=== PATIENT | female | born 1990 | race Caucasian/White ===

== ENCOUNTER 2023-07-23 08:54 | Observation (INO) ==
--- NOTE | 2023-07-07 13:31 | Anesthesiology Consultation ---
Date of Service July 07, 2023 Assessment & Plan (1) Encounter for pre-operative examination: - Check test AM DOS - Infectious disease screening: Per assessment on 07/07/23: No known infectious disease contacts or current infectious disease symptoms. No noted recent Covid positive test result. - S/P Right knee arthroscopy/PMM/chondroplasty (09/25/22): LMA#5 igel at [facility] - Preop testing: No recent EKG. Will order EKG for DOS. Chart Review Chart Review: Acceptable Risk for Surgery (pending preop EKG DOS) and Patient NOT seen in Pre Admission Testing History Surgery Operation Date: 07/23/23 07:15 Proposed Procedures p Right Knee Arthroscopy, Posterior Root Repair Medial Meniscus, Anterior Cruciate Ligament Reconstruction with Allograft, Open Osteochondral Allograft Femoral Condyle - Jeffery Morris MD Height/Weight Height: 5 ft 8 in Weight: 120.202 kg Allergies Allergy/AdvReac Type Severity Reaction Status Date / Time No Known Allergies Allergy Verified 07/02/23 14:45 Medications Home Medications Medication Instructions Recorded Confirmed Last Taken medroxyprogesterone 10 mg tablet 10 mg PO UD 08/22/22 07/07/23 09/15/22 (Provera) metformin 500 mg tablet 500 mg PO BID PCOS 08/22/22 07/07/23 09/23/22 18:00 minocycline 100 mg tablet 100 mg PO QPM 09/16/22 07/07/23 09/16/22 18:00 phentermine 37.5 mg capsule 37.5 mg PO DAILY 07/07/23 07/07/23 Unknown spironolactone 25 mg tablet 25 mg PO QAM 07/07/23 07/07/23 Unknown Past Medical History Medical History History of COVID-19 01/2021: fever, loss taste and smell, cold symptoms > symptoms resolved w/altered taste and smell Obesity PCOS (polycystic ovarian syndrome) Taking Metformin Past Family History Family History Other No family history of adverse response to anesthesia Past Surgical History Surgical History History of arthroscopy of right knee (09/25/22) Right knee arthroscopy/PMM/chondroplasty: LMA#5 igel at [facility] Hx laparoscopic cholecystectomy Hx of tonsillectomy [place] teeth extracted Social History Smoking Status: Never smoker Do You Dip or Chew Tobacco: No Hx Alcohol Use: Yes alcohol intake frequency: a few times a week Hx Substance Use: No substance use type: does not use Lab Results Anesthesia Preop Results Results Anesthesia Widget: WBC 10.60 K/ul (4.8-10.8) 07/02/23 Hgb 14.8 g/dl (12.0-16.0) 07/02/23 Hct 46.0 % (37.0-47.0) 07/02/23 Plt 267 K/uL (130-400) 07/02/23 Na 141 mmol/L (136-145) 07/02/23 K 3.4 mmol/L (3.5-5.1) L 07/02/23 Cl 102 mmol/L (98-107) 07/02/23 CO2 33 mmol/L (21-32) H 07/02/23 BUN 15 mg/dl (6-23) 07/02/23 Creat 0.64 mg/dl (0.6-1.2) 07/02/23 Glucose Level 83 mg/dl (70-99(Fasting)) 07/02/23
[2023-07-23] MEDS ORDERED: ROPIVACAINE 0.5% 5 MG/ML 30 ML VIAL ONE (09:42)
[2023-07-23] MEDS ORDERED: ATROPINE SULFATE 0.1 MG/ML 10ML SYR IV PRN (10:04)
[2023-07-23] MEDS ORDERED: ONDANSETRON INJ 2 MG/ML 2 ML VIAL IV PRN ×2 (10:04→22:02)
[2023-07-23] MEDS ORDERED: ePHEDrine sulfate 50 MG/ML AMP IV PRN (10:04)
[2023-07-23] MEDS ORDERED: HYDROmorphone INJ 1 MG/ML SYRINGE IV PRN (10:04)
[2023-07-23 10:07] LABS: Pregnancy Test, Serum Negative (Negative)
[2023-07-23] MEDS ORDERED: MIDAZOLAM HCL 1 MG/ML 2ML VIAL ONE (10:09)
[2023-07-23] MEDS: ACETAMINOPHEN 500 MG TAB PO SCH ×2 (10:12→22:52)
--- NOTE | 2023-07-23 10:16 | History & Physical Bridge Note ---
Date of Service July 23, 2023 History & Physical Bridge Note I have examined the patient, reviewed the History & Physical and in the interval since the performance of the History & Physical I have noted the following changes of clinical significance: no changes noted
[2023-07-23] MEDS: LR 60ML/HR IV SCH (10:20)
[2023-07-23] MEDS: TRANEXAMIC ACID 1,000 MG **IV Pre-op IV SCH (10:36)
[2023-07-23] MEDS ORDERED: ROCURONIUM BROMIDE 10 MG/ML 5 ML VIAL IV ONE ×3 (10:51→13:27)
[2023-07-23] MEDS ORDERED: fentaNYL citrate PF 100 MCG/2 ML VIAL ONE ×2 (10:51→13:54)
[2023-07-23] MEDS ORDERED: ONDANSETRON INJ 2 MG/ML 2 ML VIAL ONE ×2 (10:51→19:12)
[2023-07-23] MEDS ORDERED: LIDOCAINE 2% 2 ML VIAL/AMP(20MG/ML) INFIL ONE (10:51)
[2023-07-23] MEDS ORDERED: PROPOFOL IV EMULSION 10 MG/ML 20 ML VIAL IV ONE ×6 (10:51→20:40)
[2023-07-23] MEDS ORDERED: DEXAMETHASONE SOD INJ 4 MG/ML VIAL ONE (10:51)
[2023-07-23] MEDS: ceFAZolin 3000MG 3,000 MG/72.5 ML BAG IV SCH (11:19)
[2023-07-23] MEDS: TRANEXAMIC ACID 100 MG/ML 10 ML VIAL IV ONE (12:15)
--- NOTE | 2023-07-23 14:23 | Electrocardiogram Report ---
Test Reason : Blood Pressure : / mmHG Vent. Rate : 066 BPM Atrial Rate : 066 BPM P-R Int : 176 ms QRS Dur : 068 ms QT Int : 390 ms P-R-T Axes : 039 -01 012 degrees QTc Int : 408 ms Sinus rhythm with marked sinus arrhythmia Otherwise normal ECG No previous ECGs available Confirmed by Brian Zhou ([id number]) on 07/23/2023 2:23:49 PM Referred By: Jeffery Morris Confirmed By:Andrea Zhou
[2023-07-23] MEDS ORDERED: ceFAZolin 330 MG/ML 1 GM VIAL ONE (15:01)
[2023-07-23] MEDS ORDERED: HYDROmorphone INJ 2 MG/ML SYR/VIAL ONE ×2 (16:27→19:34)
[2023-07-23] MEDS: TRANEXAMIC ACID 1,000 MG **IV Intra-op IV SCH (17:23)
[2023-07-23] MEDS: VANCOMYCIN HCL 1000MG/20ML VIAL ONE (18:40)
[2023-07-23] MEDS ORDERED: diphenhydrAMINE 50 MG/ML VIAL ONE (19:16)
[2023-07-23] MEDS ORDERED: NEOSTIGMINE METHYLSULFATE 1 MG/ML 10ML VIAL ONE (19:18)
[2023-07-23] MEDS ORDERED: GLYCOPYRROLATE 0.2 MG/ML VIAL ONE (19:18)
[2023-07-23] MEDS ORDERED: Nursing to Pharmacy Communication SCH (20:45)
[2023-07-23] MEDS: fentaNYL citrate PF 100 MCG/2 ML VIAL IV PRN (20:50)
--- NOTE | 2023-07-23 21:06 | Anesthesiology Progress Note ---
Date of Service July 23, 2023 Anesthesia Post Procedure Vital Signs Vital Signs: Temp Pulse Pulse Resp BP Pulse Ox O2 Del Method 07/23/23 20:55 82 14 135/84 100 Room Air 07/23/23 20:45 72 13 135/84 100 Oxymask 07/23/23 20:35 73 11 L 116/98 100 Oxymask 07/23/23 20:25 72 11 L 139/73 100 Oxymask 07/23/23 20:15 97.3 F L 72 11 L 134/85 100 Oxymask 07/23/23 09:38 98.4 F 81 20 126/92 100 Room Air O2 Flow Rate 07/23/23 20:55 07/23/23 20:45 6 07/23/23 20:35 6 07/23/23 20:25 6 07/23/23 20:15 6 07/23/23 09:38 Pain Intensity Right Knee: Pain Intensity: 7 Transfer of Care Handoff Completed per policy Notes Mental Status: alert / awake / arousable and participated in evaluation Patient Amnestic to Procedure: Yes Nausea / Vomiting: adequately controlled Pain: adequately controlled Airway Patency, RR, SpO2: stable & adequate BP & HR: stable & adequate Hydration State: stable & adequate Anesthetic Complications: no major complications apparent and Pt Satisfied with anesthetic care
--- NOTE | 2023-07-23 21:55 | Operative Report ---
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 Because of the BMI and habitus, at least 2 hours were added to what would be expected for routine case. The combined pathology led to at least 2 hours of preoperative planning time and increased surgical time to address the multiple variables for knee preservation. Surgeon Jeffery Morris MD Voice Writing Reporter Perla Lucero PA-C Estimated Blood Loss 100 Findings See Below EUA demonstrated grade 2B Jeffrey and anterior drawer, 0 station, grade 1 posterior drawer, grade 3 pivot shift. Arthroscopy revealed ACL deficiency, chronic tear of the posterior root of the medial meniscus with progression of the medial femoral condyle focal chondral defect. There was some adjacent far medial tibial plateau disease underneath the chronically torn medial meniscus. The lateral compartment unfortunately had new onset chondromalacia with a 8 x 28 mm full-thickness chondral defect involving the majority of the weightbearing portion lateral femoral condyle, which was not expected. The patella had fibrillated cartilage with grade 2 and 3 change. The trochlea had full- thickness chondral delamination. The patellofemoral changes were new since the original surgery and MRI. The posterior root of the medial meniscus was repaired after elevation with an Arthrex simple mattress suture lock. This reduced the meniscus well. The medial femoral condyle disease was treated with a large bioUni osteochondral allograft with good fit (X20). The medial tibial plateau disease was offloaded with an 8 degree high tibial osteotomy using Arthrex iBalance PEEK plate (medium, 8 degrees; 4.5 x 44 mm cortical HTO anchor, 6.5 x 20 mm cancellous anchor, 6.5 x 24 mm cancellous anchor, 4.5 x 40 mm cortical anchor) backfilled with 2 Osferion wedges 7 mm x 30 mm, and local autograft bone from the ACL tunnels and osteotomy. The lateral femoral condyle surprisingly required osteochondral allograft implantation as well, and was treated with a biouni OCA (S14). The chronic ACL deficiency was treated with an allograft quad link measuring 8.5 x 66 mm, fixed on the femur with an Arthrex tight rope button and on the tibia with an ABS tight rope button 17 mm. The internal brace to traversed from the tight rope and into a 4.75 bio composite lock on the tibia. Specimens None Complications none Disposition Accompanied Patient To Recovery: Yes Disposition: Recovery Room Indications 33-year-old female presented today to proceed with the proposed knee preservation surgery to include allograft ACL reconstruction, osteochondral allograft to the medial femoral condylar lesion, and to address the original lesion of the root tear of the medial meniscus. She had previously undergone surgery for the meniscal issue where the intraoperative exam found to be ACL deficient and unstable. At that surgery retreated a medial femoral condylar lesion with chondroplasty. The anterior lateral compartments were without pathology. I opted not to fix the posterior to the medial meniscus due to the inherent knee instability from chronic ACL deficiency and a high-grade pivot shift. She was treated for the past year with activity modification and seem to gain some relief with a chondroplasty. Ultimately she felt unstable and painful. I proposed knee preservation surgeries to address the medial femoral condyle defect, chronic posterior root medial meniscus tear and chronic ACL insufficiency. Reviewed the risk, benefits, and alternatives of surgery in detail, as outlined in several preoperative notes. Ultimately informed consent was obtained for surgery as she desired to proceed with an knee arthroscopy, high tibial osteotomy, osteochondral allograft to the medial femoral condyle, and posterior root medial meniscus repair. Description of Procedure On the day of surgery, the patient was greeted in the preoperative holding area. The informed consent was reviewed and confirmed by myself and the patient. The patient identified the surgical site and was marked by me. The patient was then turned over to anesthesia. Anesthesia performed a regional anesthetic block with excellent effect. Patient was then taken to the operating place upon the OR table and anesthesia was in duced. The airway was secured. She was placed supine on the table with a lateral post and a foot bump to hold knee flexion. Nonsterile tourniquet was placed high on the thigh. The limb was then prepped and draped in usual sterile fashion for knee surgery. Fluoroscopic imaging was available. The grafts were available and viable. Surgical timeout was called by the circulating nurse, and verified all present. Antibiotics have been infused, TXA had been infused, equipment was available and functional, and the grafts were ready. On the back table, the physician assistant director of financial aid prepped the allograft ACL under my direction. This shuttling sutures were used to place an Arthrex tight rope on the femoral side, and an ABS button on the tibial side. This was placed under 80 pounds of tension on the back table. A compression to reduce the graft size from 9 to 8.5 mm. It was soaked in normal saline and preserved on the back table under tension. The osteochondral allograft was taken from its preparation medium and soaked in normal warm saline. This was covered and preserved. Surgery was initiated with establishing a lateral viewing portal for the arthroscopy. Cursory diagnostic arthroscopy is carried out. Medial portal was established using a spinal needle for localization. Surprisingly, there was advancement of her chondral disease in the patellofemoral compartment and lateral compartment. After evaluating the lateral compartment, there was concern about proceeding with the ACL. I then evaluated the condylar graft and discovered that the may be enough tissue for an osteochondral allograft to both condyles. For that reason we continue the surgery. The medial compartment was visualized. She had a stable full-thickness chondral lesion that was involving the majority of the weightbearing surface of the medial femoral condyle. On the far medial margin of the medial tibial plateau there was adjacent full-thickness chondral loss due to meniscal extrusion and a chronic root tear. The meniscus was mobilized and did reduce well to the root. We directed our attention to the medial meniscus root repair. The tibial incision was made in line for the planned osteotomy. Dissection was carried down through the soft tissues with Bovie electrocautery for hemostasis. The patella tendon was identified. The capsule was preserved for knee arthroscopy. I exposed the anterior medial face of the tibia and the pes anserine tissues. The hamstring insertion was identified and preserved. The medial meniscus posterior root guide was then placed into the medial portal which been cannulated with an Arthrex silicone passport. The suture lock pin was then drilled to the posterior landmark without complication. The shuttling suture was placed up the cannulated pin and taken out the medial portal. The suture lock device was then loaded onto this Nitinol wire and pulled down and deployed into the proximal tibia with a firm reduction. This was tensioned and set on an y the subchondral bone. The sutures from the suture lock were taken on the lateral portal. I then used the repair Arthrex meniscal scorpion to pass repair stitches from the suture lock in the appropriate locations for simple mattress repair. These were shuttled using the suture lock mechanism. The meniscus reduced well and fixed in place at the prepared footprint. This completed the meniscal repair. The meniscus did reduce well and covered out the medial tibial plateau disease. We decided to continue with the next steps. Attention was then directed to the femoral origin of the ACL. Soft tissue dissection was carried out using motorized shaver and RF [place] wand. The ACL footprint had chronic changes from a remote rupture. The residual ACL tissue was scarred against the floor of the tibia and against the PCL. This was debrided in its entirety back to the tibial footprint. Tibial footprint was marked. The flip cutter was then introduced. The body habitus made to suggest the guide to accommodate. We then drilled from outside him with the flip cutter 3. The flip cutter was used to cut an 8.5 mm socket in the femoral footprint without complication. A shuttling stitch was placed here. This was a fiber snare. This was secured with a hemostat for later passage. The socket reamings were collected using an Arthrex graftnet for later grafting to the HTO site. The ACL tibial guide was then used to drill the tibial socket in similar fashion. We drilled a 8.5 mm socket with extended length to accommodate for osteotomy which was a plan to cross. I cut at least a 40 mm socket. No shuttling suture was passed here as we would have to do the osteotomy first. All the reamings were collected via his motorized shaver and the GraftNet. Attention was then directed to the osteochondral allograft portion of the surgery. The skin incision was extended up over the patella in standard fashion. Hemostasis was achieved. At this point the tourniquet was inflated. We used 250 mmHg with gravity exsanguination. Soft the dissection was carried down to the arthrotomy portion. I carried the arthrotomy up into the quad tendon on its medial border. The arthrotomy was then carried down to the tibial plateau to expose the medial border the patella tendon. We could see the femoral suture already passed. The joint was thoroughly irrigated to ensure no bone debris from the femoral drilling was remaining. Soft tissues were released to allow lateral subluxation of patella using Z retractors. This revealed the medial femoral condyle easily. The lesion was majority the weightbearing surface and the knee had to be hyperflexed to about 100 degrees to visualize the posterior border. The template guides for the OCA system were used to size the lesion. We used ma ximal size of an X20. This template was then used on the osteochondral allograft. The allograft was captured on the graft prep station. The template was used to begin the harvest. The area was marked so that the cutting guide could be tamped down. We then used the cutting guide to develop the bio uni shape. It was cut down to the third line depth. The standard sagittal saw cutting guide was used to harvest the graft using the proprietary system. The plunger device was used to free the graft and the cutting block. The graft was in good shape. It fit well into the template guide. The graft plug was then thoroughly irrigated with 3 L of Pulsavac lavage. 20 cc of ACP was harvested by anesthesia. This was used to hydrate the graft. It was stored in a sterile container on the back table while prepared the recipient lesion. The recipient area was then prepped by placing the guidepins to the template guide. The reamer drill was used to debride the cartilage. The block cut was used to remove the in between bone. We cut this flush using the variable reamer. The bony surface was scraped using an osteotome to clear all debris through irrigation was used with Andersen tip suction. The floor of the bed was microfractured using a microfracture awl. Allosync pure demineralized bone matrix was then hydrated with some of the ACP and placed in the bed recipient bed. Suture tape was placed across the bed and the prepared allograft plug was placed down into the bed. He seemed to be somewhat prominent all around. The fiber tape was used to remove the plug. The plug was placed back in the ACP silk. I then used the +1 reamers to flatten the bed another millimeter. This resulted in a better fit. We prepped the bed in the same way with microfracture and Allosync pure. There was good fit, so the suture tapes were cut and removed from underneath the graft gentle tamping was used to secure it. The retractors were then used to further subluxate the patella to expose the lateral femoral condyle. There was a full-thickness significant lesion that may alter the weightbearing plan and osteotomy benefit. For that reason I opted to use remaining cartilage graft to perform an osteochondral allograft this lateral femoral condyle as well. This added additional time to the procedure. The lateral femoral condyle procedure was carried out in a similar fashion as the medial. On this section, used the S14 template. This match fairly well to the anterior portion of the contralateral lateral femoral condyle. This was harvested with standard technique and preserved and then soaked ACP after 3 L pulse lavage. The recipient site was repaired in a similar manner but I offset the flush reamer and a +1 mm reamer because of the fit and the template guide on the back table. This resulted in a good fit. The plug was soaked in ACP and then transferred into the lesion bed with suture tape underneath it. We checked the fit and it was somewhat proud. The plug was removed in a similar fashion. I scraped the medial border of the recipient bed for about a millimeter. The dilator was used once again to open it up. The microfracture awl prepared the bed and Allosync. Was used along the margins. The donor plugs were all beveled at their bottom edge for easier fit. The plug was then placed over the suture tape. There was excellent fit and full range of motion without crepitus. The suture tapes were then cut and pulled. Final tamping was performed gently to seat the graft finally. This completed to osteochondral allograft, 1 to each femoral condyle. At this point we broke scrub to don lead for the osteotomy portion. With fresh gown and gloves, proceeded to direct our attention to the osteotomy portion. I exposed the anterior medial face of the tibia with slight extension of the incision. Dissection was carried out posterior medially. An L-shaped sartorial fascial elevation was performed to allow access to the posterior margin of the tibia. The curved Manning was then directed along the posterior tibia with fluoroscopic guidance to make way for the neurovascular shield. Fluoroscopy confirmed appropriate position. We then worked on placing our cutting guide. He was placed against the face of the tibia. We had significant difficulty due to body habitus. Her tibial soft tissue envelope maxed out the available space and the guide. This required additional time and dissection to get appropriate placement. Finally were able to align the tibial slope and wings of the guides to allow appropriate placement with the pedicles firmly placed against the tibia in appropriate position. The finger projection placed underneath the patellar tendon just proximal to its insertion. Fluoroscopy was used in multiple planes to confirm safe position. The guide was then pinned in place with standard technique. We obtained an AP view of fluoroscopy for the lateral hinge pin. We had obtained a perfect hopi and there seem to be acceptable position for the hands. This was drilled and the hinge pin was placed. We then drilled the 2 cores for our plate screw placement. The centering pin plug was used during this process. The pin guide was then removed for the cutting guide. The neurovascular guide was then placed per the arabic translator's directions along the guide. The position of the neurovascular shield appeared to be appropriate based on fluoroscopy as it was advanced towards the fibular head. The cutting block was then used with a sagittal saw to begin our tibial osteotomy with caution for nearby neurovascular structures. The osteotomy was finished using the Arthrex osteotome. We used multiple plain fluoroscopy to ensure complete osteotomy. We did have to revise the medial cortex to complete it with the osteotome. We then gained opening with valgus stress. The cutting guide was then removed. The HTO opening Cruz was then placed. The cruz was then used over the next 5 to 7 minutes to gradually open the osteotomy. We used a plumbline from the centimeter femoral head to the center of her talus. I aim for the lateral tibial spine with an 8 degree correction requiring to gain that. This was slightly larger than the preoperative plan from her standing x-rays. I opened about 10 degrees to allow placement of graft. OsFerion wedges were cut to fit and then tamped in place along the anterior and posterior medial cortices. Bone graft was tamped into place through the curz while leaving room for the plate. The cruz was removed and the plate was placed. We selected 8 degree medium plate based on our sizing guide with full fluoroscopic imaging to start the case. The plate sat flush. It did tend to rotate somewhat and a tamp had to be used to place it back in place. We then direct attention to the Arthrex HTO plate anchors. These were drilled according to arabic translator's directions. The inferior bicortical anchors were tapped appropriately. The inferior medial screw position screw head did seem to break. The screw head was removed. The plate did seem to gain fixation with it. It was left in place. The remaining 3 anchors were drilled and placed with good fixation. The plate seem to reduce with slight medial rotation and a 2 to 3 mm overhang. I felt this was acceptable because the correction was adequate on her fluoroscopy with the plumbline and weightbearing axis. I also felt this will remain a good cortical fit to prevent collapse. In addition, the ACL tibial tunnel traversed the wedge and gain further fixation. The surgical site was then thoroughly irrigated. I last that was directed at passing and fixed in the ACL. The tibial shuttling suture was placed. The original tunnel position was very close to the inferior portion of the osteotomy site and would break out with suspensory fixation. For that reason, I redirected a 2.4 mm guidepin for more inferior on the tibia up into the osteotomy site. I held a cannula guide so a 3.5 mm flip cutter could open this for fixation passage. The fiber snare was passed up into the osteotomy site. Through the open arthrotomy I could pass another fiber snare from the articular side of the tibial tunnel down into the osteotomy site. I then used the proximal fiber snare to pass the more distal 1 and placed a shuttling suture through the entirety of our tibial tunnel. With the shuttling suture set, the graft was taken from the back table. It was soaked in vancomycin solution for 90 seconds. Suture strands were organized, and the tape sutures measured 20 mm from each of the ends. The femoral side was passed using the shuttling stitch. The tight rope button was deployed firmly on the femoral cortex. The internal brace suture was used to hold the button down. With the internal brace holding the button down, the thyromegaly was used to bring the graft up into the socket. We reduced it initially but did not tension it. The tibial side was then reduced using the shuttling suture. The graft seem to deploy well with the internal brace. The suture suspensory fixation traversed the tibial osteotomy well and the graft passage was full and unconstrained. The ABS button was then placed on the ABS mechanism on the tibial side and firmly seated on the cortex. The knee was cycled 20 full cycles, and the graft was retention. The internal brace sutures were put on tension. The knee was placed in full extension with a reverse anterior drawer and the internal brace was then fixed. I then cycled the knee 20 more revolutions. The tibial and femoral suspensory fixation was retention. The graft can be visualized through the arthrotomy and it was well-seated on both ends and under excellent tension with appropriate position of the internal brace just posterior to it. Intraoperative exam revealed 0 station, grade 1A anterior drawer, grade 1A Jeffrey, and reversal of the pivot shift 0. There was excellent stability. The the plate was stable. The surgical site was then thoroughly irrigated with the arthroscopic lavage. Allosync pure remnants were then driven forcefully with a syringe into the osteotomy site. The remaining bone graft was used in this area as well. Attention was directed to wound management and closure. The periosteum was approximated using #1 Vicryl suture with near complete reduction over the osteotomy plate. The capsulotomy was closed with interrupted #2 FiberWire and 5-6 spot welds. Another #1 Vicryl was run along the capsulotomy for a watertight seal. The deep fat layer was robust and closed with #1 Vicryl suture. The subdermal layer was closed with 0 Vicryl suture. The dermis was approximated with interrupted 2-0 Vicryl. Final skin closure consisted of dalton. We addressed the portal and lateral femoral condylar incision in a similar fashion. The incisions were dressed with sterile Xeroform, plain gauze, ABDs, and contained by Webril and a long Mathew wrap from the foot to the thigh. The limb was placed in a standard range of motion brace with a 0 to 90 degree lockout and locked in full extension. The patient tolerated the prolonged surgery very well, was extubated in the operating without complication, and transported to the recovery area in stable condition. Disposition: Due to duration of the case in the hour of the day, she was admitted for observation and pain management. She will be evaluated by her team in the morning for discharge. She should be flatfoot weightbearing for at least 6 weeks, based on radiographic progression. Range of motion limited 0-90 for the first 6 weeks to protect the posterior meniscal repair. She will be followed up in clinic in 10-14 days. Postoperative gas to be obtained in the recovery area. Physician assistant director of financial aid attestation: Perla Lucero PA-C was present and scrubbed for the duration of the case. Skilled assistance was essential to prepping/draping, patient positioning, graft preparation, retraction, and assistance with wound closure. I attest to the content of the Intraoperative Record and any orders documented therein. Any exceptions are noted below.
[2023-07-23] MEDS ORDERED: NALOXONE HCL 0.4 MG/1 ML VIAL/CARP IV PRN (22:02)
[2023-07-23] MEDS ORDERED: ALUMINUM/MAGNESIUM SUSP 30 ML UDC PO PRN (22:02)
[2023-07-23] MEDS ORDERED: bisacodyL 10 MG SUPP PR PRN (22:02)
[2023-07-23] MEDS ORDERED: HYDROmorphone INJ 0.5 MG/0.5 ML SYR IV PRN (22:02)
[2023-07-23] MEDS ORDERED: METOCLOPRAMIDE HCL INJ 5 MG/ML 2 ML VIAL IV PRN (22:02)
[2023-07-23] MEDS ORDERED: MAGNESIUM HYDROXIDE SUSP 30 ML UDC PO PRN (22:02)
[2023-07-23] MEDS: fentaNYL citrate PF 100 MCG/2 ML VIAL ONE (22:02)
[2023-07-23] MEDS ORDERED: diphenhydrAMINE 50 MG/ML VIAL IV PRN (22:02)
[2023-07-23] MEDS: MINOCYCLINE HCL 50 MG CAP PO SCH (22:49)
[2023-07-23] MEDS: DOCUSATE SODIUM 100 MG CAP PO SCH (22:50)
[2023-07-23] MEDS: ASPIRIN 325 MG ECTAB PO SCH (22:50)
[2023-07-23] MEDS: SENNA 8.6 MG TAB PO SCH (22:51)
[2023-07-23] MEDS: SODIUM CHLORIDE 0.9% 1,000 ML IV SCH (22:53)
[2023-07-23] MEDS: HYDROmorphone INJ 1 MG/ML SYRINGE IV PRN (22:56)
[2023-07-23] MEDS: ceFAZolin 2000MG 2,000 MG/15 ML SYR IV SCH (22:56)
[2023-07-23] MEDS: KETOROLAC TROMETHAMINE 15 MG/ML VIAL IV SCH (23:03)
[2023-07-24] MEDS: TRANEXAMIC ACID / 0.7% NACL 1,000 MG/100 ML BAG IV SCH (01:01)
[2023-07-24] MEDS: oxyCODONE HCL IR 5 MG TAB (IMMEDIATE RELEASE) PO PRN (01:01)
--- NOTE | 2023-07-24 06:56 | Fluoroscopy Report ---
FL knee RT 1 or 2V CLINICAL HISTORY: RIGHT KNEEchronic right knee pain COMPARISON STUDY: Right knee radiographs of same day FLUOROSCOPY TIME: 102.2 FLUOROSCOPY IMAGES: 1 EXPOSURE DOSE: 13.15 mGy FINDINGS: Lateral image demonstrates an orthopedic metallic device projected over the proximal tibia. No additional images were submitted. IMPRESSION: Fluoroscopic assistance as above. ACT 112: Negative or not required by law. Electronically signed by: Rebel Gregory M.D. 07/24/2023 6:54 AM
--- NOTE | 2023-07-24 08:31 | XRay Report ---
RIGHT KNEE TWO VIEWS CLINICAL HISTORY: Postoperative examination. FINDINGS: AP and crosstable lateral portable views of the right knee are compared to study dated 08/22. The skeletal structures are well-mineralized. There is evidence of tibial osteotomy and ACL re pair. There is fracture of the lateral tibial plateau. There is flattening along the weightbearing cruz rface of the medial femoral condyle, as well as irregularity along the weightbearing surface of the l ateral femoral condyle. There is a cortical defect seen along the peripheral aspect of the lateral fe moral condyle. There are marginal osteophytes. Skin clips, soft tissue gas, and soft tissue edema tyler und the knee joint are expected with postsurgical changes. A 2 cm well-corticated ossific density is seen in the anterior upper calf. IMPRESSION: 1. There is postsurgical change from ACL repair and tibial osteotomy. 2. There is nondisplaced fracture along the lateral tibial plateau. 3. Changes in the distal femur as above. 4. Soft tissue swelling and subcutaneous gas around the knee are expected postsurgical changes. Dictated: 07/24/2023 7:33 AM Transcribed: 07/24/2023 8:25 AM Wilder [id number] [email or web address] Electronically signed by: Del Joe M.D. 07/24/2023 8:30 AM
[2023-07-24] MEDS: SPIRONOLACTONE 25 MG TAB PO SCH (08:43)
[2023-07-24] MEDS: MULTIVITAMIN TAB PO SCH (08:43)
[2023-07-24] MEDS: metFORMIN HCL 500 MG TAB PO SCH (08:43)
[2023-07-24] MEDS: ASCORBIC ACID 500 MG TAB PO SCH (08:44)
--- NOTE | 2023-07-24 09:33 | Orthopedic Progress Note ---
Date of Service July 24, 2023 Assessment & Plan (1) S/P right knee surgery: Patient is doing well on postop day 1. She will be ready for discharge once her pain is controlled and when she works with PT/OT for ambulation restrictions. She should be flatfoot weightbearing x 6 weeks in the right lower extremity. She should also not exceed range of motion 0 to 90 degrees over the next 6 weeks. Her brace should be locked in extension when she is up and ambulating. We would like to see her back in 1 week for a postop check and x-rays. We will coordinate with our office on this. Subjective Operation Date: 07/23/23 10:25 Actual Procedures p Right Knee Arthroscopy, Posterior Root Repair Medial Meniscus, Anterior Cruciate Ligament Reconstruction with Allograft, Open Osteochondral Allograft Medial and Lateral Femoral Condyle, High Tibial Osteotomy(Right) - Jfefery Morris MD POD 1: patient resting comfortably in hospital bed. Her postop brace is intact. She has full range of motion of the right toes and ankle. States that she is doing okay. She has not worked with physical therapy/Occupational Therapy yet. States that her pain is controlled with the protocol that we have been using since last evening. Denies any other questions or concerns today. Review of Systems All systems reviewed & are unremarkable except as noted in HPI & below. Physical Exam General: Alert and oriented. No acute distress. She is resting comfortably in hospital bed. Right knee: Brace and Mathew wrap were not removed for today's visit due to her early postop stage. She has full range of motion of the right ankle and toes. Her sensation is intact. Distal pulses palpated. Capillary fill less than 3 seconds. Postop brace intact. Results & Data Results & Data Laboratory Results Laboratory Results - last 24 hr 07/23/23 09:30 HCG, Qual Negative PG Care Time/CCT Total # of Minutes Spent Total Time Spent with Patient: Total time spent is greater than 50% in coordination of care (as documented) at patient's floor/unit and/or counseling patient: Coding Level of Care Code 39715 Post Operative Follow-Up Diagnoses S/P right knee surgery Z98.890
--- NOTE | 2023-07-24 11:40 | Discharge Summary ---
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 Her knee continues to bother her daily. She says it feels unstable and feels like it wants to drift into hyperextension. Pain occurs deep in the knee. She has moderated activities and dealt with it this past year, but looking for more pain relief and functional ability. She has the most trouble with squatting and deep flexion positions and certain degrees of stair climbing. She had a long discussion with Dr. Morris about the cartilage defects, ACL deficiency, meniscal tearing, and knee instability. She did have a prior knee arthroscopy by Dr. Morris where cartilage disease was also noted. They discussed surgical intervention for all the issues discussed above. The patient underwent surgery on 07/23/23 and was admitted to the hospital for observation. She was discharged once she ambulated with PT/OT and her pain was controlled. Admission Exam (Per Admitting) Constitutional General: Alert and oriented. No acute distress. She is resting comfortably in hospital bed. Right knee: Brace and Mathew wrap were not removed for today's visit due to her early postop stage. She has full range of motion of the right ankle and toes. Her sensation is intact. Distal pulses palpated. Capillary fill less than 3 seconds. Postop brace intact. Discharge Data Procedures Performed Operation Date: 07/23/23 10:25 Actual Procedures p Right Knee Arthroscopy, Posterior Root Repair Medial Meniscus, Anterior Cruciate Ligament Reconstruction with Allograft, Open Osteochondral AllograftMedial and Lateral Femoral Condyle, High Tibial Osteotomy(Right) - Jeffery Morris MD Hospital Course (1) S/P right knee surgery: Coding Level of Care Code None Diagnoses S/P right knee surgery Z98.890
[2023-08-08] MEDS ORDERED: medroxyPROGESTERone ACETATE 10 MG TAB PO SCH (09:00)
== END 2023-07-24 12:29 | disposition home or self-care (01) ==
LOC: 3N 08:54 → ASU 08:54
DX: Z98.890 Other specified postprocedural states; Z79.84 Long term (current) use of oral hypoglycemic drugs; Z68.41 Body mass index [BMI] 40.0-44.9, adult; S83.511A Sprain of anterior cruciate ligament of right knee, initial encounter; M25.361 Other instability, right knee; E66.9 Obesity, unspecified; Z86.16 Personal history of COVID-19; M94.261 Chondromalacia, right knee; Z79.3 Long term (current) use of hormonal contraceptives; Z79.899 Other long term (current) drug therapy; S83.241A Other tear of medial meniscus, current injury, right knee, initial encounter; M23.8X1 Other internal derangements of right knee; E28.2 Polycystic ovarian syndrome